=== PATIENT | female | born 1990 | race Two or more races ===

== ENCOUNTER 2019-10-13 07:55 | Inpatient (IN) | payer OTHER ==
[~2019-10-13] VITALS: Ht 152.4 cm; Wt 68.5 kg
[~2019-10-13 07:55] MED LIST: CITA20TA6 PO; OXYC1TAB15 PO
[2019-10-13 08:38] LABS: BILIRUBIN,URINE NEGATIVE (NEG); CLARITY,URINE CLEAR; COLOR,URINE YELLOW; NITRITE,URINE NEGATIVE (NEG); PROTEIN,URINE NEGATIVE (NEG-TRACE)
[2019-10-13 08:51] LABS: BACTERIA,URINE 0 /HPF (0-FEW); SQUAMOUS EPITHELIAL CELL,UR MOD /LPF
[2019-10-13] MEDS ORDERED: ONDANSETRON ODT 4 MG TAB.RAPDIS. PO ONE (09:15)
[2019-10-13 09:59] LABS: BASO % 0 % (0-3); EOS % 0 % (0-3); HEMATOCRIT 35.6 % (36.0-47.0); HEMOGLOBIN 12.5 g/dL (12.0-15.5); LYMPH # 0.6 x10^3/uL (1.0-4.8); LYMPH % 3 % (24-48); MEAN CORPUSCULAR HEMOGLOBIN 31 pg (25-35); MEAN CORPUSCULAR HGB CONC 35 g/dL (31-37); MEAN CORPUSCULAR VOLUME 89 fL (79-100); MONO # 1.1 x10^3/uL (0.0-1.1); MONO % 5 % (0-9); NEUT # 20.1 x10^3/uL (1.8-7.7); NEUT % 92 % (31-73); PLATELET COUNT 234 x10^3/uL (140-400); RED BLOOD COUNT 4.01 x10^6/uL (3.50-5.40); RED CELL DISTRIBUTION WIDTH 12.3 % (11.5-14.5); WHITE BLOOD COUNT 21.8 x10^3/uL (4.0-11.0)
[2019-10-13] MEDS ORDERED: IV NORMAL SALINE 1000ML BAG 1,000 ML IV ONE ×2 (10:00→10:15)
[2019-10-13 10:09] LABS: CALCIUM 8.2 mg/dL (8.5-10.1); CREATININE 0.8 mg/dL (0.6-1.0); GFR 83.7; POTASSIUM 3.5 mmol/L (3.5-5.1)
[2019-10-13 10:13] LABS: ALBUMIN 3.8 g/dL (3.4-5.0); ALBUMIN/GLOBULIN RATIO 1.1 (1.0-1.7); TOTAL BILIRUBIN 1.7 mg/dL (0.2-1.0); TOTAL PROTEIN 7.2 g/dL (6.4-8.2)
[2019-10-13] MEDS ORDERED: fentaNYL PF VIAL 100 MCG/2 ML VIAL IVP ONE (10:15)
[2019-10-13] MEDS ORDERED: IOHEXOL 300 MG/ML 100ML VIAL. IV ONE (10:30)
[2019-10-13] MEDS ORDERED: CONTRAST GIVEN. MC PRN (10:30)
--- NOTE | 2019-10-13 10:35 | PHYS DOC ---
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 She states she had a bowel movement last night that w as normal for her. She rates her pain a 7 out of 10. She has not taken any medications for the pain. She denies any medical history and takes no medications daily. She states that she has had some nausea and vomiting since the pain has begun. Patient denies diarrhea, chest pain, fever, shortness of breath, cough, dysuria, vaginal discharge, headache, dizziness, numbness or tingling, vision changes, focal weakness. 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 [] Eyes: Denies change in visual acuity. [] HENT: Denies nasal congestion or sore throat. [] Respiratory: Denies cough or shortness of breath. [] Cardiovascular: Denies chest pain or edema. [] GI: abdominal pain, nausea, vomiting, denies bloody stools or diarrhea. [] : Denies dysuria. [] Musculoskeletal: Left back pain or joint pain. [] Integument: Denies rash. [] Neurologic: Denies headache, focal weakness or sensory changes. [] Endocrine: Denies polyuria or polydipsia. [] Lymphatic: Denies swollen glands. [] Psychiatric: Denies depression or anxiety. [] (ASHER SAENZ SCRE[employer] MACHINE OPERATOR [employer]) Heart Score: Risk Factors: Risk Factors: DM, Current or recent (<one month) smoker, HTN, HLP, family h istory of CAD, obesity. Risk Scores: Score 0 - 3: 2.5% MACE over next 6 weeks - Discharge Home Score 4 - 6: 20.3% MACE over next 6 weeks - Admit for Clinical Observation Score 7 - 10: 72.7% MACE over next 6 weeks - Early Invasive Strategies (ASHER SAENZ APRN) Current Medications: Current Medications Medications (Trade) Dose Ordered Sig/Solo Start Time Stop Time Status Last Admin Dose Admin Fentanyl Citrate (Fentanyl 2ml Vial) 50 mcg 1X ONCE 10/13/19 10:15 10/13/19 10:17 DC Info (CONTRAST GIVEN -- Rx MONITORING) 1 each PRN DAILY PRN 10/13/19 10:30 10/15/19 10:29 Iohexol (Omnipaque 300 Mg/ml) 75 ml 1X ONCE 10/13/19 10:30 10/13/19 10:31 DC Ondansetron HCl (Zofran Odt) 4 mg 1X ONCE 10/13/19 09:15 10/13/19 09:16 DC 10/13/19 09:40 4 MG Sodium Chloride 1,000 ml @ 1,000 mls/hr 1X ONCE 10/13/19 10:15 10/13/19 11:14 (ASHER SAENZ APRN) Allergies: Allergies: Allergies Coded Allergies Type Severity Reaction Last Updated Verified No Known Drug Allergies 10/13/19 No (ASHER SAENZ APRN) Physical Exam: PE: Constitutional: Well developed, well nourished, no acute distress, non-toxic appearance. [] HENT: Normocephalic, atraumatic, bilateral external ears normal, oropharynx mois t, no oral exudates, nose normal. [] Eyes: PERRLA, EOMI, conjunctiva normal, no discharge. [] Neck: Normal range of motion, no tenderness, supple, no stridor. [] Cardiovascular:Heart rate regular rhythm, no murmur [] Lungs & Thorax: Bilateral breath sounds clear to auscultation [] Abdomen: Bowel sounds normal, soft, generalized tenderness, no masses, no pulsatile masses. [] Skin: Warm, dry, no erythema, no rash. [] Back: No tenderness, no CVA tenderness. [] Extremities: No tenderness, no cyanosis, no clubbing, ROM intact, no edema. [] Neurologic: Alert and oriented X 3, normal motor function, normal sensory function, no focal deficits noted. [] Psychologic: Affect normal, judgement normal, mood normal. [] (ASHER SAENZ APRN) Current Patient Data: Labs: Laboratory Tests Test 10/13/19 08:05 10/13/19 08:19 10/13/19 09:43 Urine Collection Type Unknown Urine Color Yellow Urine Clarity Clear Urine pH 8.0 (<5.0-8.0) Urine Specific [place] 1.025 (1.000-1.030) Urine Protein Negative mg/dL (NEG-TRACE) Urine Glucose (UA) Negative mg/dL (NEG) Urine Ketones (Stick) >=80 mg/dL (NEG) Urine Blood Negative (NEG) Urine Nitrite Negative (NEG) Urine Bilirubin Negative (NEG) Urine Urobilinogen Dipstick 1.0 mg/dL (0.2 mg/dL) Urine Leukocyte Esterase Negative (NEG) Urine RBC 1-2 /HPF (0-2) Urine WBC 1-4 /HPF (0-4) Urine Squamous Epithelial Cells Mod /LPF Urine Bacteria 0 /HPF (0-FEW) Urine Mucus Marked /LPF POC Urine HCG, Qualitative Hcg negative (Negative) White Blood Count 21.8 x10^3/uL (4.0-11.0) H Red Blood Count 4.01 x10^6/uL (3.50-5.40) Hemoglobin 12.5 g/dL (12.0-15.5) Hematocrit 35.6 % (36.0-47.0) L Mean Corpuscular Volume 89 fL (79-100) Mean Corpuscular Hemoglobin 31 pg (25-35) Mean Corpuscular Hemoglobin Concent 35 g/dL (31-37) Red Cell Distribution Width 12.3 % (11.5-14.5) Platelet Count 234 x10^3/uL (140-400) Neutrophils (%) (Auto) 92 % (31-73) H Lymphocytes (%) (Auto) 3 % (24-48) L Monocytes (%) (Auto) 5 % (0-9) Eosinophils (%) (Auto) 0 % (0-3) Basophils (%) (Auto) 0 % (0-3) Neutrophils # (Auto) 20.1 x10^3/uL (1.8-7.7) H Lymphocytes # (Auto) 0.6 x10^3/uL (1.0-4.8) L Monocytes # (Auto) 1.1 x10^3/uL (0.0-1.1) Eosinophils # (Auto) 0.0 x10^3/uL (0.0-0.7) Basophils # (Auto) 0.0 x10^3/uL (0.0-0.2) Platelet Estimate Pending Sodium Level 138 mmol/L (136-145) Potassium Level 3.5 mmol/L (3.5-5.1) Chloride Level 102 mmol/L (98-107) Carbon Dioxide Level 25 mmol/L (21-32) Anion Gap 11 (6-14) Blood Urea Nitrogen 15 mg/dL (7-20) Creatinine 0.8 mg/dL (0.6-1.0) Estimated GFR (Cockcroft-Gault) 83.7 BUN/Creatinine Ratio 19 (6-20) Glucose Level 126 mg/dL (70-99) H Calcium Level 8.2 mg/dL (8.5-10.1) L Total Bilirubin 1.7 mg/dL (0.2-1.0) H Aspartate Amino Transferase (AST) 17 U/L (15-37) Alanine Aminotransferase (ALT) 18 U/L (14-59) Alkaline Phosphatase 64 U/L (46-116) Total Protein 7.2 g/dL (6.4-8.2) Albumin 3.8 g/dL (3.4-5.0) Albumin/Globulin Ratio 1.1 (1.0-1.7) Lipase 82 U/L (73-393) Laboratory Tests 10/13/19 09:43 Laboratory Tests 10/13/19 09:43 Vital Signs: Vital Signs Date Time Temp Pulse Resp B/P (MAP) Pulse Ox O2 Delivery O2 Flow Rate FiO2 10/13/19 09:46 82 18 111/58 (75) 96 Room Air 10/13/19 09:10 99.4 99.4 (ASHER SAENZ APRN) EKG: EKG: [] (ASHER SAENZ APRN) Radiology/Procedures: Radiology/Procedures: [] Impression: [facility] [address] [place] [address] IMAGING REPORT Signed PATIENT: PAULA STATON ACCOUNT: [id number] : 1990 LOCATION: ER AGE: 29 SEX: F EXAM STATUS: REG ER ORD. PHYSICIAN: ASHER SAENZ APRN REASON: abdominal pain PROCEDURE: CT ABD PELV W/ IV CONTRST ONLY CT ABDOMEN AND PELVIS WITH IV CONTRAST History: Abdominal pain Comparison: None. Technique: After administration of intravenous contrast, helical CT of the abdomen and pelvis was performed from the lung bases through the ischial tuberosities. Coronal and sagittal reconstructions were obtained. Abdomen Findings: The visualized lung bases are clear. Slightly contracted gallbladder. No gallbladder wall thickening or pericholecystic fluid. The liver is normal in appearance. The pancreas is normal in appearance. The spleen is normal in appearance. The bilateral adrenal glands are normal in appearance. 1.0 cm left renal cyst. Bilateral kidneys enhance symmetrically. There is no focal renal mass. There is no hydronephrosis. The visualized loops of small bowel are normal. The visualized loops of large bowel are normal. There is no evidence of bowel obstruction. The fluid-filled and appendix enlarged measuring up to 1.0 cm with mild periappendiceal inflammatory changes. There is no free fluid. There is no mesenteric or retroperitoneal adenopathy. The abdominal aorta is normal in caliber. There appear to be 3 right and 2 left renal arteries. Small fat-containing umbilical hernia. Pelvis Findings: Urinary bladder is normal. Trace amount of fluid in the endometrial canal is likely physiologic given patient's age. No pelvic free fluid. There is no pelvic or inguinal adenopathy. There is no acute bony abnormality. Small sclerotic foci in the right femoral head most likely related to bone islands. IMPRESSION: CT findings concerning for acute appendicitis. No evidence of perforation or abscess formation. PQRS Compliance Statement: One or more of the following individualized dose reduction techniques were utilized for this examination: 1. Automated exposure control 2. Adjustment of the mA and/or kV according to patient size 3. Use of iterative reconstruction technique Electronically signed by: Carlos Clark MD (10/13/2019 10:55 AM) [id number] DICTATED and SIGNED BY: CARLOS CLARK MD DATE: 10/13/19 1055 (ASHER SAENZ APRN) Course & Med Decision Making: Course & Med Decision Making Pertinent Labs and Imaging studies reviewed. (See chart for details) Ambulatory with a steady gait. Skin pink warm and dry. Speaks in full complete sentences. Alert and oriented. Generalized tenderness to the abdomen but the abdomen is soft. Lungs are clear to auscultation all lobes. Vital signs are within normal limits. I have ordered IV normal saline fluids, pain medication and nausea medication. I spoke to Dr. Nava concerning the patient and appendicitis. I have also spoken to Dr. Urias for admission. I have started Zosyn antibiotic. Patient is admitted to the hospital. [] (ASHER SAENZ APRN) Dragon Disclaimer: Dragon Disclaimer: This electronic medical record was generated, in whole or in part, using a voice recognition dictation system. (ASHER SAENZ APRN) Departure Departure Impression: Primary Impression: Appendicitis Qualified Codes: K35.80 - Unspecified acute appendicitis Disposition: ADMITTED INPATIENT Admitting Physician: REY (ASHER SAENZ APRN) Condition: STABLE Referrals: NO PCP (PCP) Justicifation of Admission Dx: Justifications for Admission: Justification of Admission Dx: Yes Comments: appendicits (ASHER SAENZ APRN) Attending Signature Attending Signature I have participated in the care of this patient and I have reviewed and agree with all pertinent clinical information above including history, exam, and recommendations. (MARLIN LOPEZ DO) ASHER SAENZ APRN Oct 13, 2019 10:35 MARLIN LOPEZ DO Oct 13, 2019 16:01
[2019-10-13 10:56] LABS: % BANDS 15 % (0-9); % LYMPHS 3 % (24-48); % MONOS 1 % (0-10); % SEGS 81 % (35-66); PLT ESTIMATE ADEQUATE (ADEQUATE)
--- NOTE | 2019-10-13 10:58 | RAD ---
CT ABDOMEN AND PELVIS WITH IV CONTRAST History: Abdominal pain Comparison: None. Technique: After administration of intravenous contrast, helical CT of the abdomen and pelvis was performed from the lung bases through the ischial tuberosities. Coronal and sagittal reconstructions were obtained. Abdomen Findings: The visualized lung bases are clear. Slightly contracted gallbladder. No gallbladder wall thickening or pericholecystic fluid. The liver is normal in appearance. The pancreas is normal in appearance. The spleen is normal in appearance. The bilateral adrenal glands are normal in appearance. 1.0 cm left renal cyst. Bilateral kidneys enhance symmetrically. There is no focal renal mass. There is no hydronephrosis. The visualized loops of small bowel are normal. The visualized loops of large bowel are normal. There is no evidence of bowel obstruction. The fluid-filled and appendix enlarged measuring up to 1.0 cm with mild periappendiceal inflammatory changes. There is no free fluid. There is no mesenteric or retroperitoneal adenopathy. The abdominal aorta is normal in caliber. There appear to be 3 right and 2 left renal arteries. Small fat-containing umbilical hernia. Pelvis Findings: Urinary bladder is normal. Trace amount of fluid in the endometrial canal is likely physiologic given patient's age. No pelvic free fluid. There is no pelvic or inguinal adenopathy. There is no acute bony abnormality. Small sclerotic foci in the right femoral head most likely related to bone islands. IMPRESSION: CT findings concerning for acute appendicitis. No evidence of perforation or abscess formation. PQRS Compliance Statement: One or more of the following individualized dose reduction techniques were utilized for this examination: 1. Automated exposure control 2. Adjustment of the mA and/or kV according to patient size 3. Use of iterative reconstruction technique Electronically signed by: Carlos Clark MD (10/13/2019 10:55 AM) [place] [id number]
[2019-10-13] MEDS ORDERED: fentaNYL PF VIAL 100 MCG/2 ML VIAL IV PRN (11:15)
[2019-10-13] MEDS ORDERED: PIPERACILLIN/TAZOBACTAM 3.375 GM in IV NORMAL SALINE 50ML 50 ML IV ONE (11:15)
[2019-10-13] MEDS ORDERED: ONDANSETRON PF 4 MG/2 ML VIAL. IV PRN (11:15)
--- NOTE | 2019-10-13 11:17 | PDOC1 ---
History and Physical Date of Admission Date of Admission DATE: 10/13/19 TIME: 11:17 Identification/Chief Complaint Chief Complaint Abdominal pain Source Source: Patient History of Present Illness History of Present Illness Ms Kendall is a 29yo F with no significant PMHx who comes to ED c/o sudden onset RLQ abdominal pain around 2300 on 10/12/2019. CT scan shows signs consistent with acute appendicitis with no evidence of perforation or abscess. Started last evening denies any nausea vomiting fevers or chills. Past Medical History Cardiovascular: No pertinent hx Past Surgical History Past Surgical History: No pertinent history Family History Family History: Hypertension Social History Smoke: No ALCOHOL: none Drugs: None Current Problem List Problem List Problems Medical Problems: (1) Appendicitis Status: Acute Current Medications Current Medications Current Medications Ondansetron HCl (Zofran Odt) 4 mg 1X ONCE PO Last administered on 10/13/19at 09:40; Start 10/13/19 at 09:15; Stop 10/13/19 at 09:16; Status DC Sodium Chloride 1,000 ml @ 1,000 mls/hr 1X ONCE IV Last administered on 10/13/19at 10:53; Start 10/13/19 at 10:00; Stop 10/13/19 at 10:59; Status DC Fentanyl Citrate (Fentanyl 2ml Vial) 50 mcg 1X ONCE IVP Last administered on 10/13/19at 10:55; Start 10/13/19 at 10:15; Stop 10/13/19 at 10:17; Status DC Sodium Chloride 1,000 ml @ 1,000 mls/hr 1X ONCE IV ; Start 10/13/19 at 10:15; Stop 10/13/19 at 11:14; Status DC Iohexol (Omnipaque 300 Mg/ml) 75 ml 1X ONCE IV Last administered on 10/13/19at 10:36; Start 10/13/19 at 10:30; Stop 10/13/19 at 10:31; Status DC Info (CONTRAST GIVEN -- Rx MONITORING) 1 each PRN DAILY PRN MC SEE COMMENTS; Start 10/13/19 at 10:30; Stop 10/15/19 at 10:29 Piperacillin Sod/ Tazobactam Sod 3.375 gm/Sodium Chloride 50 ml @ 100 mls/hr 1X ONCE IV ; Start 10/13/19 at 11:15; Stop 10/13/19 at 11:44 Active Scripts Active Reported Percocet 5-325 Mg Tablet (Oxycodone/Acetaminophen) 1 Each Tablet 1-2 Tab PO Q4- 6HRS LAST DOSE GIVEN: DATE: TIME: NEXT DOSE DUE: DATE: TIME: Citalopram Hbr (Citalopram Hydrobromide) 20 Mg Tablet 20 Mg PO DAILY Allergies Allergies: Coded Allergies: No Known Drug Allergies (Unverified , 10/13/19) ROS General: No: Chills, Night Sweats, Fatigue, Malaise, Appetite, Other PSYCHOLOGICAL ROS: No: Anxiety, Behavioral Disorder, Concentration difficultie, Decreased libido, Depression, Disorientation, Hallucinations, Hostility, Irritablity, Memory difficulties, Mood Swings, Obsessive thoughts, Physical abuse, Sexual abuse, Sleep disturbances, Suicidal ideation, Other Eyes: No Blurry vision, No Decreased vision, No Double vision, No Dry eyes, No Excessive tearing, No Eye Pain, No Itchy Eyes, No Loss of vision, No Photophobia, No Scotomata, No Uses contacts, No Uses glasses, No Other HEENT: No: Heacaches, Visual Changes, Hearing change, Nasal congestion, Nasal discharge, Oral lesions, Sinus pain, Sore Throat, Epistaxis, Sneezing, Snoring, Tinnitus, Vertigo, Vocal changes, Other ALLERGY AND IMMUNOLOGY: No: Hives, Insect Bite Sensitivity, Itchy/Watery Eyes, Nasal Congestion, Post Nasal Drip, Seasonal Allergies, Other Hematological and Lymphatic: No: Bleeding Problems, Blood Clots, Blood Transfusions, Brusing, Night Sweats, Pallor, Swollen Lymph Nodes, Other ENDOCRINE: No: Breast Changes, Galactorrhea, Hair Pattern Changes, Hot Flashes, Malaise/lethargy, Mood Swings, Palpitations, Polydipsia/polyuria, Skin Changes, Temperature Intolerance, Unexpected Weight Changes, Other Breast: No New/Changing Breast Lumps, No Nipple changes, No Nipple discharge, No Other Respiratory: No: Cough, Hemoptysis, Orthopnea, Pleuritic Pain, Shortness of breath, SOB with excertion, Sputum Changes, Stridor, Tachypnea, Wheezing, Other Cardiovascular: No Chest Pain, No Palpitations, No Orthopnea, No Paroxysmal Noc. Dyspnea, No Edema, No Lt Headedness, No Other Gastrointestinal: Yes Nausea, Yes Abdominal Pain; No Vomiting, No Diarrhea, No Constipation, No Melena, No Hematochezia, No Other Genitourinary: No Dysuria, No Frequency, No Incontinence, No Hematuria, No Retention, No Discharge, No Urgency, No Pain, No Flank Pain, No Other, No , No , No , No , No , No , No Musculoskeletal: No Gait Disturbance, No Joint Pain, No Joint Stiffness, No Joint Swelling, No Muscle Pain, No Muscular Weakness, No Pain In:, No Swelling In:, No Other Neurological: No Behavorial Changes, No Bowel/Bladder ControlChng, No Confusion, No Dizziness, No Gait Disturbance, No Headaches, No Impaired Coord/balance, No Memory Loss, No Numbness/Tingling, No Seizures, No Speech Problems, No Tremors, No Visual Changes, No Weakness, No Other Skin: No Dry Skin, No Eczema, No Hair Changes, No Lumps, No Mole Changes, No Mottling, No Nail Changes, No Pruritus, No Rash, No Skin Lesion Changes, No Other, No Acne Physical Exam General: Alert, Oriented X3, Cooperative, mild distress HEENT: Atraumatic, PERRLA, EOMI, Mucous membr. moist/pink Lungs: Clear to auscultation, Normal air movement Heart: S1S2, RRR, no thrills, no rubs Abdomen: Normal bowel sounds, Soft, No hepatosplenomegaly, No masses, Other (RLQ tender) Rectal Exam: not examined Extremities: No clubbing, No cyanosis, No edema, Normal pulses, No tenderness/swelling Skin: No rashes, No breakdown, No significant lesion Neuro: Normal gait, Normal speech, Strength at 5/5 X4 ext, Normal tone, Sensation intact, Cranial nerves 3-12 NL, Reflexes 2+ Psych/Mental Status: Mental status NL, Mood NL Vitals Vitals Vital Signs Date Time Temp Pulse Resp B/P (MAP) Pulse Ox O2 Delivery O2 Flow Rate FiO2 10/13/19 10:57 76 16 103/59 (74) 97 Room Air 10/13/19 09:10 99.4 99.4 Labs Labs Laboratory Tests Test 10/13/19 08:05 10/13/19 08:19 10/13/19 09:43 Urine Collection Type Unknown Urine Color Yellow Urine Clarity Clear Urine pH 8.0 (<5.0-8.0) Urine Specific [place] 1.025 (1.000-1.030) Urine Protein Negative mg/dL (NEG-TRACE) Urine Glucose (UA) Negative mg/dL (NEG) Urine Ketones (Stick) >=80 mg/dL (NEG) Urine Blood Negative (NEG) Urine Nitrite Negative (NEG) Urine Bilirubin Negative (NEG) Urine Urobilinogen Dipstick 1.0 mg/dL (0.2 mg/dL) Urine Leukocyte Esterase Negative (NEG) Urine RBC 1-2 /HPF (0-2) Urine WBC 1-4 /HPF (0-4) Urine Squamous Epithelial Cells Mod /LPF Urine Bacteria 0 /HPF (0-FEW) Urine Mucus Marked /LPF Bedside Urine HCG, Qualitative Hcg negative (Negative) White Blood Count 21.8 x10^3/uL (4.0-11.0) Red Blood Count 4.01 x10^6/uL (3.50-5.40) Hemoglobin 12.5 g/dL (12.0-15.5) Hematocrit 35.6 % (36.0-47.0) Mean Corpuscular Volume 89 fL (79-100) Mean Corpuscular Hemoglobin 31 pg (25-35) Mean Corpuscular Hemoglobin Concent 35 g/dL (31-37) Red Cell Distribution Width 12.3 % (11.5-14.5) Platelet Count 234 x10^3/uL (140-400) Neutrophils (%) (Auto) 92 % (31-73) Lymphocytes (%) (Auto) 3 % (24-48) Monocytes (%) (Auto) 5 % (0-9) Eosinophils (%) (Auto) 0 % (0-3) Basophils (%) (Auto) 0 % (0-3) Neutrophils # (Auto) 20.1 x10^3/uL (1.8-7.7) Lymphocytes # (Auto) 0.6 x10^3/uL (1.0-4.8) Monocytes # (Auto) 1.1 x10^3/uL (0.0-1.1) Eosinophils # (Auto) 0.0 x10^3/uL (0.0-0.7) Basophils # (Auto) 0.0 x10^3/uL (0.0-0.2) Segmented Neutrophils % 81 % (35-66) Band Neutrophils % 15 % (0-9) Lymphocytes % 3 % (24-48) Monocytes % 1 % (0-10) Platelet Estimate Adequate (ADEQUATE) Sodium Level 138 mmol/L (136-145) Potassium Level 3.5 mmol/L (3.5-5.1) Chloride Level 102 mmol/L (98-107) Carbon Dioxide Level 25 mmol/L (21-32) Anion Gap 11 (6-14) Blood Urea Nitrogen 15 mg/dL (7-20) Creatinine 0.8 mg/dL (0.6-1.0) Estimated GFR (Cockcroft-Gault) 83.7 BUN/Creatinine Ratio 19 (6-20) Glucose Level 126 mg/dL (70-99) Calcium Level 8.2 mg/dL (8.5-10.1) Total Bilirubin 1.7 mg/dL (0.2-1.0) Aspartate Amino Transf (AST/SGOT) 17 U/L (15-37) Alanine Aminotransferase (ALT/SGPT) 18 U/L (14-59) Alkaline Phosphatase 64 U/L (46-116) Total Protein 7.2 g/dL (6.4-8.2) Albumin 3.8 g/dL (3.4-5.0) Albumin/Globulin Ratio 1.1 (1.0-1.7) Lipase 82 U/L (73-393) Laboratory Tests Test 10/13/19 08:05 10/13/19 08:19 10/13/19 09:43 Urine Collection Type Unknown Urine Color Yellow Urine Clarity Clear Urine pH 8.0 (<5.0-8.0) Urine Specific [place] 1.025 (1.000-1.030) Urine Protein Negative mg/dL (NEG-TRACE) Urine Glucose (UA) Negative mg/dL (NEG) Urine Ketones (Stick) >=80 mg/dL (NEG) Urine Blood Negative (NEG) Urine Nitrite Negative (NEG) Urine Bilirubin Negative (NEG) Urine Urobilinogen Dipstick 1.0 mg/dL (0.2 mg/dL) Urine Leukocyte Esterase Negative (NEG) Urine RBC 1-2 /HPF (0-2) Urine WBC 1-4 /HPF (0-4) Urine Squamous Epithelial Cells Mod /LPF Urine Bacteria 0 /HPF (0-FEW) Urine Mucus Marked /LPF Bedside Urine HCG, Qualitative Hcg negative (Negative) White Blood Count 21.8 x10^3/uL (4.0-11.0) Red Blood Count 4.01 x10^6/uL (3.50-5.40) Hemoglobin 12.5 g/dL (12.0-15.5) Hematocrit 35.6 % (36.0-47.0) Mean Corpuscular Volume 89 fL (79-100) Mean Corpuscular Hemoglobin 31 pg (25-35) Mean Corpuscular Hemoglobin Concent 35 g/dL (31-37) Red Cell Distribution Width 12.3 % (11.5-14.5) Platelet Count 234 x10^3/uL (140-400) Neutrophils (%) (Auto) 92 % (31-73) Lymphocytes (%) (Auto) 3 % (24-48) Monocytes (%) (Auto) 5 % (0-9) Eosinophils (%) (Auto) 0 % (0-3) Basophils (%) (Auto) 0 % (0-3) Neutrophils # (Auto) 20.1 x10^3/uL (1.8-7.7) Lymphocytes # (Auto) 0.6 x10^3/uL (1.0-4.8) Monocytes # (Auto) 1.1 x10^3/uL (0.0-1.1) Eosinophils # (Auto) 0.0 x10^3/uL (0.0-0.7) Basophils # (Auto) 0.0 x10^3/uL (0.0-0.2) Segmented Neutrophils % 81 % (35-66) Band Neutrophils % 15 % (0-9) Lymphocytes % 3 % (24-48) Monocytes % 1 % (0-10) Platelet Estimate Adequate (ADEQUATE) Sodium Level 138 mmol/L (136-145) Potassium Level 3.5 mmol/L (3.5-5.1) Chloride Level 102 mmol/L (98-107) Carbon Dioxide Level 25 mmol/L (21-32) Anion Gap 11 (6-14) Blood Urea Nitrogen 15 mg/dL (7-20) Creatinine 0.8 mg/dL (0.6-1.0) Estimated GFR (Cockcroft-Gault) 83.7 BUN/Creatinine Ratio 19 (6-20) Glucose Level 126 mg/dL (70-99) Calcium Level 8.2 mg/dL (8.5-10.1) Total Bilirubin 1.7 mg/dL (0.2-1.0) Aspartate Amino Transf (AST/SGOT) 17 U/L (15-37) Alanine Aminotransferase (ALT/SGPT) 18 U/L (14-59) Alkaline Phosphatase 64 U/L (46-116) Total Protein 7.2 g/dL (6.4-8.2) Albumin 3.8 g/dL (3.4-5.0) Albumin/Globulin Ratio 1.1 (1.0-1.7) Lipase 82 U/L (73-393) Images Images The visualized lung bases are clear. Slightly contracted gallbladder. No gallbladder wall thickening or pericholecystic fluid. The liver is normal in appearance. The pancreas is normal in appearance. The spleen is normal in appearance. The bilateral adrenal glands are normal in appearance. 1.0 cm left renal cyst. Bilateral kidneys enhance symmetrically. There is no focal renal mass. There is no hydronephrosis. The visualized loops of small bowel are normal. The visualized loops of large bowel are normal. There is no evidence of bowel obstruction. The fluid-filled and appendix enlarged measuring up to 1.0 cm with mild periappendiceal inflammatory changes. There is no free fluid. There is no mesenteric or retroperitoneal adenopathy. The abdominal aorta is normal in caliber. There appear to be 3 right and 2 left renal arteries. Small fat-containing umbilical hernia. Pelvis Findings: Urinary bladder is normal. Trace amount of fluid in the endometrial canal is likely physiologic given patient's age. No pelvic free fluid. There is no pelvic or inguinal adenopathy. There is no acute bony abnormality. Small sclerotic foci in the right femoral head most likely related to bone islands. IMPRESSION: CT findings concerning for acute appendicitis. No evidence of perforation or abscess formation. VTE Prophylaxis Ordered VTE Prophylaxis Devices: Yes VTE Pharmacological Prophylaxi: No Assessment/Plan Assessment/Plan A/P: Acute appendicitis - zosyn, general surgery consult. Pain control. NPO. COVID 19 screen pending Sepsis - due to appendicitis, on empiric IVF and antibiotics Overweight - counseled on weight loss Elevated bilirubin - will monitor, no biliary history FEN - NPO PPX - SCDs FULL CODE Dispo - inpatient for acute appendicitis Justicifation of Admission Dx: Justifications for Admission: Justification of Admission Dx: Yes MARI PICKARD MD Oct 13, 2019 11:17
[2019-10-13 12:00] VITALS: BP 100/56
[2019-10-13] MEDS: IV NORMAL SALINE 1000ML BAG 1,000 ML IV SCH (12:13)
--- NOTE | 2019-10-13 12:59 | PDOC2 ---
CONSULT Date of Consult Date of Consult DATE: 10/13/19 TIME: 12:57 Reason for Consult Reason for Consult: Acute appendicitis Referring Physician Referring Physician: Bridgett Identification/Chief Complaint Chief Complaint Right lower quadrant abdominal pain for 18 hours Source Source: Patient History of Present Illness Reason for Visit: 29-year-old female whose had right lower quadrant abdominal pain for approximately 18 hours started last evening denies any nausea vomiting fevers or chills. CT scan shows signs consistent with acute appendicitis with no evidence of perforation or abscess Past Medical History Cardiovascular: No pertinent hx Past Surgical History Past Surgical History: No pertinent history Current Problem List Problem List Problems Medical Problems: (1) Appendicitis Status: Acute Current Medications Current Medications Current Medications Ondansetron HCl (Zofran Odt) 4 mg 1X ONCE PO Last administered on 10/13/19at 09:40; Start 10/13/19 at 09:15; Stop 10/13/19 at 09:16; Status DC Sodium Chloride 1,000 ml @ 1,000 mls/hr 1X ONCE IV Last administered on 10/13/19at 10:53; Start 10/13/19 at 10:00; Stop 10/13/19 at 10:59; Status DC Fentanyl Citrate (Fentanyl 2ml Vial) 50 mcg 1X ONCE IVP Last administered on 10/13/19at 10:55; Start 10/13/19 at 10:15; Stop 10/13/19 at 10:17; Status DC Sodium Chloride 1,000 ml @ 1,000 mls/hr 1X ONCE IV Last administered on 10/13/19at 10:15; Start 10/13/19 at 10:15; Stop 10/13/19 at 11:14; Status DC Iohexol (Omnipaque 300 Mg/ml) 75 ml 1X ONCE IV Last administered on 10/13/19at 10:36; Start 10/13/19 at 10:30; Stop 10/13/19 at 10:31; Status DC Info (CONTRAST GIVEN -- Rx MONITORING) 1 each PRN DAILY PRN MC SEE COMMENTS; Start 10/13/19 at 10:30; Stop 10/15/19 at 10:29 Piperacillin Sod/ Tazobactam Sod 3.375 gm/Sodium Chloride 50 ml @ 100 mls/hr 1X ONCE IV Last administered on 10/13/19at 11:27; Start 10/13/19 at 11:15; Stop 10/13/19 at 11:44; Status DC Ondansetron HCl (Zofran) 4 mg PRN Q8HRS PRN IV NAUSEA/VOMITING; Start 10/13/19 at 11:15; Stop 10/14/19 at 11:14 Fentanyl Citrate (Fentanyl 2ml Vial) 50 mcg PRN Q1HR PRN IV PAIN; Start at 11:15; Stop 10/14/19 at 11:14 Sodium Chloride 1,000 ml @ 75 mls/hr [id number] IV Last administered on 10/13/19at 12:13; Start 10/13/19 at 11:14; Stop 10/14/19 at 11:13 Active Scripts Active Reported No Known Medications Prior To Admisstion (Info) Each 1 Each DAILY Allergies Allergies: Coded Allergies: No Known Drug Allergies (Unverified , 10/13/19) ROS Gastrointestinal: Yes Abdominal Pain Physical Exam General: Alert, Oriented X3, Cooperative, mild distress HEENT: Atraumatic Lungs: Clear to auscultation, Normal air movement Heart: Regular rate, No murmurs Abdomen: Normal bowel sounds, Other (Tender to palpation right lower quadrant) Extremities: No edema Skin: No significant lesion Neuro: Normal speech Psych/Mental Status: Mental status NL Vitals VITALS Vital Signs Date Time Temp Pulse Resp B/P (MAP) Pulse Ox O2 Delivery O2 Flow Rate FiO2 10/13/19 12:39 Room Air 10/13/19 11:30 77 16 93/50 (64) 98 10/13/19 09:10 99.4 99.4 Labs Labs Laboratory Tests Test 10/13/19 08:05 10/13/19 08:19 10/13/19 09:43 Urine Collection Type Unknown Urine Color Yellow Urine Clarity Clear Urine pH 8.0 (<5.0-8.0) Urine Specific [place] 1.025 (1.000-1.030) Urine Protein Negative mg/dL (NEG-TRACE) Urine Glucose (UA) Negative mg/dL (NEG) Urine Ketones (Stick) >=80 mg/dL (NEG) Urine Blood Negative (NEG) Urine Nitrite Negative (NEG) Urine Bilirubin Negative (NEG) Urine Urobilinogen Dipstick 1.0 mg/dL (0.2 mg/dL) Urine Leukocyte Esterase Negative (NEG) Urine RBC 1-2 /HPF (0-2) Urine WBC 1-4 /HPF (0-4) Urine Squamous Epithelial Cells Mod /LPF Urine Bacteria 0 /HPF (0-FEW) Urine Mucus Marked /LPF Bedside Urine HCG, Qualitative Hcg negative (Negative) White Blood Count 21.8 x10^3/uL (4.0-11.0) Red Blood Count 4.01 x10^6/uL (3.50-5.40) Hemoglobin 12.5 g/dL (12.0-15.5) Hematocrit 35.6 % (36.0-47.0) Mean Corpuscular Volume 89 fL (79-100) Mean Corpuscular Hemoglobin 31 pg (25-35) Mean Corpuscular Hemoglobin Concent 35 g/dL (31-37) Red Cell Distribution Width 12.3 % (11.5-14.5) Platelet Count 234 x10^3/uL (140-400) Neutrophils (%) (Auto) 92 % (31-73) Lymphocytes (%) (Auto) 3 % (24-48) Monocytes (%) (Auto) 5 % (0-9) Eosinophils (%) (Auto) 0 % (0-3) Basophils (%) (Auto) 0 % (0-3) Neutrophils # (Auto) 20.1 x10^3/uL (1.8-7.7) Lymphocytes # (Auto) 0.6 x10^3/uL (1.0-4.8) Monocytes # (Auto) 1.1 x10^3/uL (0.0-1.1) Eosinophils # (Auto) 0.0 x10^3/uL (0.0-0.7) Basophils # (Auto) 0.0 x10^3/uL (0.0-0.2) Segmented Neutrophils % 81 % (35-66) Band Neutrophils % 15 % (0-9) Lymphocytes % 3 % (24-48) Monocytes % 1 % (0-10) Platelet Estimate Adequate (ADEQUATE) Sodium Level 138 mmol/L (136-145) Potassium Level 3.5 mmol/L (3.5-5.1) Chloride Level 102 mmol/L (98-107) Carbon Dioxide Level 25 mmol/L (21-32) Anion Gap 11 (6-14) Blood Urea Nitrogen 15 mg/dL (7-20) Creatinine 0.8 mg/dL (0.6-1.0) Estimated GFR (Cockcroft-Gault) 83.7 BUN/Creatinine Ratio 19 (6-20) Glucose Level 126 mg/dL (70-99) Calcium Level 8.2 mg/dL (8.5-10.1) Total Bilirubin 1.7 mg/dL (0.2-1.0) Aspartate Amino Transf (AST/SGOT) 17 U/L (15-37) Alanine Aminotransferase (ALT/SGPT) 18 U/L (14-59) Alkaline Phosphatase 64 U/L (46-116) Total Protein 7.2 g/dL (6.4-8.2) Albumin 3.8 g/dL (3.4-5.0) Albumin/Globulin Ratio 1.1 (1.0-1.7) Lipase 82 U/L (73-393) Laboratory Tests Test 10/13/19 08:05 10/13/19 08:19 10/13/19 09:43 Urine Collection Type Unknown Urine Color Yellow Urine Clarity Clear Urine pH 8.0 (<5.0-8.0) Urine Specific [place] 1.025 (1.000-1.030) Urine Protein Negative mg/dL (NEG-TRACE) Urine Glucose (UA) Negative mg/dL (NEG) Urine Ketones (Stick) >=80 mg/dL (NEG) Urine Blood Negative (NEG) Urine Nitrite Negative (NEG) Urine Bilirubin Negative (NEG) Urine Urobilinogen Dipstick 1.0 mg/dL (0.2 mg/dL) Urine Leukocyte Esterase Negative (NEG) Urine RBC 1-2 /HPF (0-2) Urine WBC 1-4 /HPF (0-4) Urine Squamous Epithelial Cells Mod /LPF Urine Bacteria 0 /HPF (0-FEW) Urine Mucus Marked /LPF Bedside Urine HCG, Qualitative Hcg negative (Negative) White Blood Count 21.8 x10^3/uL (4.0-11.0) Red Blood Count 4.01 x10^6/uL (3.50-5.40) Hemoglobin 12.5 g/dL (12.0-15.5) Hematocrit 35.6 % (36.0-47.0) Mean Corpuscular Volume 89 fL (79-100) Mean Corpuscular Hemoglobin 31 pg (25-35) Mean Corpuscular Hemoglobin Concent 35 g/dL (31-37) Red Cell Distribution Width 12.3 % (11.5-14.5) Platelet Count 234 x10^3/uL (140-400) Neutrophils (%) (Auto) 92 % (31-73) Lymphocytes (%) (Auto) 3 % (24-48) Monocytes (%) (Auto) 5 % (0-9) Eosinophils (%) (Auto) 0 % (0-3) Basophils (%) (Auto) 0 % (0-3) Neutrophils # (Auto) 20.1 x10^3/uL (1.8-7.7) Lymphocytes # (Auto) 0.6 x10^3/uL (1.0-4.8) Monocytes # (Auto) 1.1 x10^3/uL (0.0-1.1) Eosinophils # (Auto) 0.0 x10^3/uL (0.0-0.7) Basophils # (Auto) 0.0 x10^3/uL (0.0-0.2) Segmented Neutrophils % 81 % (35-66) Band Neutrophils % 15 % (0-9) Lymphocytes % 3 % (24-48) Monocytes % 1 % (0-10) Platelet Estimate Adequate (ADEQUATE) Sodium Level 138 mmol/L (136-145) Potassium Level 3.5 mmol/L (3.5-5.1) Chloride Level 102 mmol/L (98-107) Carbon Dioxide Level 25 mmol/L (21-32) Anion Gap 11 (6-14) Blood Urea Nitrogen 15 mg/dL (7-20) Creatinine 0.8 mg/dL (0.6-1.0) Estimated GFR (Cockcroft-Gault) 83.7 BUN/Creatinine Ratio 19 (6-20) Glucose Level 126 mg/dL (70-99) Calcium Level 8.2 mg/dL (8.5-10.1) Total Bilirubin 1.7 mg/dL (0.2-1.0) Aspartate Amino Transf (AST/SGOT) 17 U/L (15-37) Alanine Aminotransferase (ALT/SGPT) 18 U/L (14-59) Alkaline Phosphatase 64 U/L (46-116) Total Protein 7.2 g/dL (6.4-8.2) Albumin 3.8 g/dL (3.4-5.0) Albumin/Globulin Ratio 1.1 (1.0-1.7) Lipase 82 U/L (73-393) Assessment/Plan Assessment/Plan Right lower quadrant abdominal pain CT scan 6 ongoing signs consistent with acute appendicitis plan laparoscopic appendectomy pending COVID status ANDREWS YIN MD Oct 13, 2019 12:59
[2019-10-13] MEDS: PIPERACILLIN/TAZOBACTAM 3.375 GM in IV NORMAL SALINE 50ML 50 ML IV SCH ×2 (13:22→17:33)
[2019-10-13] MEDS: ACETAMINOPHEN 325 MG TABLET. PO PRN (13:22)
[2019-10-13 15:00] VITALS: BP 93/53
[2019-10-13 19:34] VITALS: BP 82/48
[2019-10-13 22:34] VITALS: BP 94/64
[2019-10-14] VITALS (13 sets, daily range): BP systolic 90–109; BP diastolic 49–63
[2019-10-14] MEDS: PIPERACILLIN/TAZOBACTAM 3.375 GM in IV NORMAL SALINE 50ML 50 ML IV SCH ×4 (00:01→18:18)
[2019-10-14] MEDS: IV NORMAL SALINE 1000ML BAG 1,000 ML IV SCH ×3 (01:49→10:13)
[2019-10-14] MEDS ORDERED: BUPIVACAINE-EPI 0.25%-1:200000 MPF 30 ML VIAL. ONE (06:57)
[2019-10-14] MEDS ORDERED: HYDROmorphone 2 MG/ML VIAL IV PRN (07:00)
[2019-10-14] MEDS ORDERED: fentaNYL PF VIAL 100 MCG/2 ML VIAL IV PRN ×2 (07:00)
[2019-10-14] MEDS ORDERED: IV RINGERS,LACTATED 1000ML 1,000 ML IV SCH (07:00)
[2019-10-14] MEDS ORDERED: MORPHINE SULFATE 2 MG/ML VIAL. IV PRN (07:00)
[2019-10-14] MEDS ORDERED: ONDANSETRON PF 4 MG/2 ML VIAL. IV PRN (07:00)
[2019-10-14] MEDS ORDERED: PROCHLORPERAZINE 10 MG/2 ML VIAL. IV PRN (07:00)
[2019-10-14] MEDS ORDERED: LIDOCAINE 2% PF 5 ML VIAL. ONE (07:08)
[2019-10-14] MEDS ORDERED: PROPOFOL 10 MG/ML (20ML) VIAL. IV ONE (07:08)
[2019-10-14] MEDS ORDERED: ROCURONIUM 50 MG/5 ML VIAL. ONE (07:09)
[2019-10-14] MEDS ORDERED: SUCCINYLCHOLINE 200 MG/10 ML VIAL. ONE (07:09)
[2019-10-14] MEDS ORDERED: fentaNYL PF VIAL 100 MCG/2 ML VIAL ONE ×2 (07:09→08:37)
[2019-10-14] MEDS ORDERED: MIDAZOLAM HCL/PF 2 MG/2 ML VIAL. ONE (07:18)
[2019-10-14] MEDS ORDERED: SEVOFLURANE 31 TO 60 MINUTES. IH ONE (07:34)
[2019-10-14] MEDS ORDERED: NEOSTIGMINE METHYLSULFATE 5 MG/5 ML SYRINGE. ONE (07:39)
[2019-10-14] MEDS ORDERED: GLYCOPYRROLATE 1 MG/5 ML VIAL. ONE (07:39)
[2019-10-14] MEDS ORDERED: DEXAMETHASONE SOD PHOS 4 MG/ML VIAL ONE (07:41)
[2019-10-14] MEDS ORDERED: ONDANSETRON PF 4 MG/2 ML VIAL. ONE (07:41)
[2019-10-14] MEDS ORDERED: KETOROLAC 30 MG/ML VIAL. ONE (07:58)
--- NOTE | 2019-10-14 08:01 | PDOC4 ---
Operative Note Operative Note Date: October 14, 2019 at 0800 Preoperative diagnosis: Acute appendicitis Postoperative diagnosis: Same Procedure: Laparoscopic appendectomy Specimen: Appendix Surgeon: Elijah Dictation: Patient is a 29-year-old female admitted to the hospital with acute appendicitis. Procedure of laparoscopic appendectomy was explained to the patient detail all risk benefits were also discussed occluding bleeding infection injury to intra-abdominal contents possibly necessitating further or open operations alternatives to this procedure also discussed with the patient who seemed to understand and gave both verbal and written consent to have the procedure performed. Patient was taken to the operating room placed in the supine position general anesthesia was initiated once patient was sleeping intubated her abdomen was prepped and draped in usual sterile fashion using ChloraPrep. An area just below the umbilicus was injected with quarter percent Marcaine with epinephrine incision was made with 11 blade scalpel and a varies needle was placed within the abdomen creating pneumoperitoneum once this was complete 12 mm port was placed and a 5 mm camera was placed within the abdomen which was inspected no other abnormalities were noted. 5 mm port was placed low in the midline under direct visualization a second 5 mm port was placed in the right midabdomen. Camera was moved to the 5 mm port low in the midline the appendix was grasped retracted towards the anterior abdominal wall a window was propagated the mesoappendix with [place] instrument and a Endo ALHAJI stapler was used to staple and transect the base of the appendix a second load was used to staple and transect the mesoappendix appendix was then placed in Endo Catch bag removed and the umbilicus right lower quadrant pelvis were irrigated and suctioned dry hemostasis deemed appropriate and the pneumoperitoneum was reduced all ports were removed the fascial defect at the umbilicus closed with [id number] Vicryl suture and the skin was reapproximated all port sites for subcuticular Monocryl Mastisol Steri-Strips and island dressings were appl ied. Patient was awakened and extubated in the operating room taken to recovery in stable condition all sponge instrument needle counts listed as correct estimated blood loss 5 mL. ANDREWS YIN MD Oct 14, 2019 08:01
--- NOTE | 2019-10-14 08:02 | DISCH ---
DISCHARGE INSTRUCTIONS Condition on Discharge Condition on Discharge: Stable Activity After Discharge Activity Instructions for Disc: Avoid exertion Other activity instructions: No lifting more than 20 pounds for 2 weeks Diet after Discharge Diet after Discharge: Regular Wound Incision Care Other wound/incision instructi: May shower in 24 hours Contacting the after DC Call your doctor for: If your condition worsens Follow-Up Follow up with: Dr. Yin in 2 weeks ANDREWS YIN MD Oct 14, 2019 08:02
[2019-10-14] MEDS ORDERED: ALBUTEROL SULFATE 2.5 MG/3 ML NEBU. NEB ONE (09:45)
--- NOTE | 2019-10-14 10:08 | NUR ---
SW following. Discussed with RN, pt from home, surgery today. RN advised no SW needs at this time. SW will continue to follow should any discharge needs arise.
--- NOTE | 2019-10-14 12:03 | PDOC ---
[facility] PROGRESS NOTE Chief Complaint Chief Complaint Appendicitis with postop laparoscopic appendectomy this morning History of Present Illness History of Present Illness 10/13/2021 Patient seen and examined She is requesting discharge I explained to her that we usually try to make sure she can eat first before she goes home Appears to be in pain Discussed with her who is in the room Chart reviewed Discussed with her Vitals/I&O Vitals/I&O: Vital Signs Date Time Temp Pulse Resp B/P (MAP) Pulse Ox O2 Delivery O2 Flow Rate FiO2 10/14/19 10:56 Nasal Cannula 1.0 10/14/19 10:35 98.2 115 18 109/63 (78) 93 98.2 I & O 10/13/19 10/13/19 10/14/19 15:00 23:00 07:00 Intake Total 50 ml 880 ml 1800 ml Balance 50 ml 880 ml 1800 ml Physical Exam General: Alert, Oriented X3, Cooperative, mild distress Heart: Regular rate, No murmurs Abdomen: Normal bowel sounds, Soft, No hepatosplenomegaly, No masses, Other (RLQ tender clean dry intact trocar sites x3) Extremities: No clubbing, No cyanosis, No edema, Normal pulses, No tenderness/swelling Skin: No rashes, No breakdown, No significant lesion Assessment and Plan Assessmemt and Plan Problems Medical Problems: (1) Appendicitis Stat Postop laparoscopic appendectomy this morning Plan Advance diet Discharge when okay with surgery Comment Review of Relevant I have reviewed the following items monika (where applicable) has been applied. Medications: Current Medications Medications (Trade) Dose Ordered Sig/Solo Route PRN Reason Start Time Stop Time Status Last Admin Dose Admin Piperacillin Sod/ Tazobactam Sod 3.375 gm/Sodium Chloride 50 ml @ 100 mls/hr Q6HRS IV 10/13/19 13:00 10/14/19 11:59 Acetaminophen (Tylenol) 650 mg PRN Q6HRS PRN PO mild pain 10/13/19 13:15 10/13/19 13:22 Fentanyl Citrate (Fentanyl 2ml Vial) 25 mcg PRN Q5MIN PRN IV MILD PAIN 1-3 10/14/19 07:00 10/15/19 06:59 10/14/19 09:07 Bupivacaine HCl/ Epinephrine Bitart (Sensorcaine-Epi 0.25%-1:343515 Mpf) 30 ml STK-MED ONCE .ROUTE 10/14/19 06:57 10/14/19 06:57 DC 10/14/19 08:12 Albuterol Sulfate (Ventolin Neb Soln) 2.5 mg 1X ONCE NEB 10/14/19 09:45 10/14/19 09:46 DC 10/14/19 09:49 Justicifation of Admission Dx: Justifications for Admission: Justification of Admission Dx: Yes ANANDA JOHNSTON III DO Oct 14, 2019 12:03
[2019-10-14] MEDS ORDERED: oxyCODONE/APAP 5/325 1 TAB TABLET PO PRN (18:45)
[2019-10-14] MEDS: LACTOBACILLUS RHAMNOSUS GG 1 CAPSULE. PO SCH (20:57)
[2019-10-15] MEDS: PIPERACILLIN/TAZOBACTAM 3.375 GM in IV NORMAL SALINE 50ML 50 ML IV SCH ×2 (00:20→06:17)
[2019-10-15] MEDS: ACETAMINOPHEN 325 MG TABLET. PO PRN (00:24)
[2019-10-15 03:00] VITALS: BP 94/57
[2019-10-15 07:09] VITALS: BP 91/48
[2019-10-15] MEDS: LACTOBACILLUS RHAMNOSUS GG 1 CAPSULE. PO SCH (08:27)
--- NOTE | 2019-10-15 09:02 | NUR ---
SW following. Discussed with RN, pt likely discharging home with self care today. RN advised no SW needs. SW will continue to follow.
[2019-10-15 10:51] VITALS: BP 104/68
--- NOTE | 2019-10-15 12:46 | DS ---
DATE OF DISCHARGE: 10/15/2019 ADMISSION DIAGNOSIS: Appendicitis. DISCHARGE DIAGNOSIS: Postop day #1 laparoscopic appendectomy. HOSPITAL COURSE: The patient is a pleasant 29-year-old female who presented with appendicitis. She was taken to the OR for laparoscopic appendectomy yesterday. Today, I saw her and examined her. She is tolerating her diet. Heart tones are normal. Lungs are clear. Abdomen was soft. We plan to discharge. DISPOSITION: Home. ACTIVITY: As tolerated. DIET: Low sodium. MEDICATIONS: Please see the MRAD. TOTAL TIME: 36 minutes. RIOSL Vesna JOHNSTON DO DR: ADRIAN/renaldo JOB#: [id number] / [id number]
--- NOTE | 2019-10-15 13:24 | NUR ---
pt. discharged to home with Rx, verbalized understanding of discharge instructions. lap sites x 3 CDI.
--- NOTE | 2019-10-15 17:06 | PATHOLOGY ---
[facility] Accession Number: [id number] . 01 Material submitted: . appendix - APPENDIX . 01 Clinical history: . Acute appendicitis . 02 Diagnosis: Appendix, laparoscopic appendectomy: - Acute appendicitis. ([facility] 10/15/2019) [facility] 10/15/2019 1531 Local . 02 Comment: There is no evidence of rupture. ([facility] 10/15/2019) . 02 Electronically signed: . Blake Hung MD, Pathologist NPI- [id number] . 01 Gross description: . The specimen is received in formalin, labeled "Danica Enoch, appendix". Received is a vermiform appendix measuring 8.7 cm in length by up to 10 cm in diameter with a moderate amount of attached mesoappendix. The serosal surface is pink-steinberg and glistening in appearance. The surgical margin is closed with a line of ashley. The ashley are removed the new margin is inked black. Sectioning reveals a patent lumen filled with blood-tinged fluid admixed with blood coagulum. The specimen is submitted representatively in cassettes A1 and A2, with the proximal margin and bisected tip submitted in cassette A1. ([facility]; 10/14/2019) QAC/QAC 10/14/2019 1751 Local . 02 Pathologist provided ICD-10: K35.80 . 02 CPT . 668958 Specimen Comment: A courtesy copy of this report has been sent to [phone] Specimen Comment: [id number] Specimen Comment: Report sent to / DR PICKARD Performed at: [address], [place], [place] [id number] MD Akhil Díaz MD Phone: [phone] Performed at: [address] [id number] MD Blake Hung MD Phone: [phone]
== END 2019-10-15 13:45 | disposition home or self-care (01) | DRG 854 ==
LOC: ER 07:55 → 4 NORTH 11:05
PROVIDERS: ADMIT Internal Medicine; ATTEND Internal Medicine
PROC: 0DTJ4ZZ Resection of Appendix, Percutaneous Endoscopic Approach (ICD-10-PCS; principal; 2019-10-14 07:30)
DX: A41.9 Sepsis, unspecified organism (principal); K35.80 Unspecified acute appendicitis; R17 Unspecified jaundice; E66.3 Overweight; Z82.49 Family history of ischemic heart disease and other diseases of the circulatory system; Z20.828 Contact with and (suspected) exposure to other viral communicable diseases
CPT/HCPCS: 36415; 74177; 80053; 81001; 81025; 83690; 85007; 85025; 88304; 94640; 96361; 96365; 96375; A7015; J0330; J1100; J1885; J2250; J2405; J2543; J2704; J2710; J3010; J3490; J7030; Q9967; 99285-25; G0378; J7613; U0003-CS